=== PATIENT | male | born 1990 | race Caucasian/White ===

== ENCOUNTER 2025-05-07 19:32 | Emergency (ER) | payer OTHER ==
[2025-05-07] MEDS ORDERED: Buprenorphine 8mg/Naloxone 2mg per 1 FILM ONE (20:08)
== END 2025-05-07 20:33 | disposition home or self-care (01) ==
LOC: ERS 19:32
DX: F11.23 Opioid dependence with withdrawal (principal); F17.290 Nicotine dependence, other tobacco product, uncomplicated
CPT/HCPCS: 93005; 99284; J0571